=== PATIENT | male | born 1990 | race Caucasian/White ===

== ENCOUNTER 2021-01-15 06:35 | Emergency (ER) | payer MEDICAID, OTHER ==
[2021-01-15] MEDS ORDERED: Sodium Chloride 0.9% 10 ML Syringe FLUSH PRN (06:49)
--- NOTE | 2021-01-15 06:55 | EDM.PDOC ---
ED HPI GENERAL MEDICAL PROBLEM - General Chief Complaint: Drug or Alcohol Abuse Stated Complaint: [facility] Time Seen by Provider: 01/15/21 06:41 Source of Information: Reports: Patient, EMS History Limitations: Reports: Combative/Threatening - History of Present Illness INITIAL COMMENTS - FREE TEXT/NARRATIVE: Patient is a 30-year-old male who was found not breathing by his friends earlier this morning. Friends state he has been doing fentanyl and alcohol though patient denies doing any fentanyl. Please stay to reverse his breathing by giving him some Narcan. Patient is somewhat belligerent in the department and wants to go immediately. He feels he was not earlier and that he is fine now and he needs to go. I have informed him he cannot leave until there is a sober adult they can come pick him up. Patient is in agreement with this at this point. Patient appears uninjured at this point. Onset: Today Duration: Resolved Prior to Arrival Severity: Severe Improves with: Reports: Other (Narcan.) Associated Symptoms: Reports: No Other Symptoms Treatments SURVEILLANCE TECHNICIAN: Reports: Other (see below) Other Treatments SURVEILLANCE TECHNICIAN: narcan x 2 doses - Related Data Allergies Allergy/AdvReac Type Severity Reaction Status Date / Time No Known Allergies Allergy Verified 01/15/21 06:45 Home Meds: Home Meds cloNIDine [Catapres] 0.1 mg PO DAILY 01/15/21 [History] Past Medical History - Past Health History Medical/Surgical History: Denies Medical/Surgical History Social & Family History - Tobacco Use Tobacco Use Status *Q: Current Every Day Tobacco User Years of Tobacco use: 15 Packs/Tins Daily: 1 Second Hand Smoke Exposure: Yes - Caffeine Use Caffeine Use: Reports: Energy Drinks, Soda - Alcohol Use Days Per Week of Alcohol Use: 7 Number of Drinks Per Day: 2 Total Drinks Per Week: 14 - Recreational Drug Use Recreational Drug Use: Yes Drug Use in Last 12 Months: Yes Recreational Drug Type: Reports: Methamphetamine ED ROS GENERAL - Review of Systems Review Of Systems: Comprehensive ROS is negative, except as noted in HPI. - Physical Exam Exam: See Below Exam Limited By: No Limitations General Appearance: Alert, No Apparent Distress Nose: Normal Mucosa Throat/Mouth: Normal Inspection Head Exam: Atraumatic, Normocephalic Neck: Normal Inspection, Supple Respiratory/Chest: No Respiratory Distress, Lungs Clear, Normal Breath Sounds Cardiovascular: Normal Peripheral Pulses, Regular Rate, Rhythm, No JVD GI/Abdominal: Normal Bowel Sounds, No Distention Neuro Exam (Abbreviated): Alert, Normal Cognition Extremities: Normal Inspection Psychiatric: Other (Angry affect.) Skin Exam: Warm, Dry Course - Vital Signs Last Recorded V/S: Last Vital Signs Temp 96.2 F L 01/15/21 06:40 Pulse 121 H 01/15/21 06:40 Resp 20 01/15/21 06:40 BP 124/91 H 01/15/21 06:40 Pulse Ox 100 01/15/21 06:40 - Orders/Labs/Meds Orders: Active Orders 24 hr Category Date Time Status Peripheral IV Care [RC] . DIRECTED Care 01/15/21 06:49 Ordered DRUG SCREEN, URINE [URCHEM] Stat Lab 01/15/21 06:49 Ordered ETOH [ETHANOL BLOOD MEDICAL] [CHEM] Stat Lab 01/15/21 06:48 Ordered Sodium Chloride 0.9% [Saline Flush] Med 01/15/21 06:49 Ordered 10 ml FLUSH ASDIRECTED PRN Peripheral IV Insertion Adult [OM.PC] Routine Oth 01/15/21 06:49 Ordered Medication Orders Sodium Chloride (Sodium Chloride 0.9% 10 Ml Syringe) 10 ml FLUSH ASDIRECTED PRN PRN Reason: Keep Vein Open Meds: Medications Generic Name Dose Route Start Last Admin Trade Name Freq PRN Reason Stop Dose Admin Sodium Chloride 10 ml 01/15/21 06:49 Sodium Chloride 0.9% 10 Ml Syringe FLUSH ASDIRECTED PRN Keep Vein Open Departure - Departure Time of Disposition: 07:03 Disposition: Home, Self-Care 01 Condition: Poor Clinical Impression: Drug abuse - Discharge Information Instructions: Illegal Drug Use Information, Adult Forms: ED Department Discharge, Refusal of Care AMA Additional Instructions: Do not use any street drugs. Go to detox if indicated. Return to ER if worse. Sepsis Event Note (ED) - Evaluation Sepsis Screening Result: No Definite Risk - Focused Exam Vital Signs: Vital Signs Temp Pulse Resp BP Pulse Ox 01/15/21 06:40 96.2 F L 121 H 20 124/91 H 100 - My Orders Last 24 Hours: My Active Orders 01/15/21 06:48 ETOH [ETHANOL BLOOD MEDICAL] [CHEM] Stat 01/15/21 06:49 Peripheral IV Care [RC] . DIRECTED DRUG SCREEN, URINE [URCHEM] Stat Sodium Chloride 0.9% [Saline Flush] 10 ml FLUSH ASDIRECTED PRN Peripheral IV Insertion Adult [OM.PC] Routine - Assessment/Plan Last 24 Hours: My Active Orders 01/15/21 06:48 ETOH [ETHANOL BLOOD MEDICAL] [CHEM] Stat 01/15/21 06:49 Peripheral IV Care [RC] . DIRECTED DRUG SCREEN, URINE [URCHEM] Stat Sodium Chloride 0.9% [Saline Flush] 10 ml FLUSH ASDIRECTED PRN Peripheral IV Insertion Adult [OM.PC] Routine
== END 2021-01-15 07:50 | disposition home or self-care (01) ==
LOC: JD.ED 06:35
DX: F19.10 Other psychoactive substance abuse, uncomplicated (principal); Z72.0 Tobacco use
CPT/HCPCS: 99283